=== PATIENT | male | born 1975 | race Caucasian/White ===

== ENCOUNTER 2016-11-15 15:17 | Outpatient (CLI) | payer OTHER ==
[~2016-11-15] VITALS: Ht 157.5 cm; Wt 65.7 kg
[2016-11-15 15:20] VITALS: BP 122/67; PULSE 72; RESP 16; Ht 157.5 cm; Wt 65.7 kg
[2016-11-15] MEDS ORDERED: HYDR-906 PO (15:25)
[2016-11-15] MEDS ORDERED: CIPR500T4 PO (15:25)
[2016-11-15] MEDS ORDERED: METR500T PO (15:25)
[2016-11-15] MEDS ORDERED: POLY17PO6 PO (15:25)
--- NOTE | 2016-11-15 15:50 | PN ---
Date/Time of Note Date/Time of Note DATE: 11/15/16 TIME: 15:44 Outpatient Progress Note Chief Complaint Abdominal pain/ HPI Abdominal pain/patient was recently admitted with abdominal pain, patient had microperforation of the diverticulum, no fever chill, patient still on antibiotic, no nausea vomiting, no diarrhea, no rectal bleeding, no discharge, mostly pain in the left lower quadrant, no radiation, no mucus, no fever chill, no diarrhea, Review of Systems Constitutional: No Fever, no chills, no Wt. loss, no Fatigue, normal appetite, no diaphoresis. Eyes: No pain, no discharge, no redness, no visual change, no foreign body. ENT: No pain, no bleeding, no congestion, no sore throat, no dysphagia, no discharge or rhinitis. Lymph: No adenopathy, no tender nodes, no lymphedema. Resp: No SOB, no cough, no sputum, no wheezing, no chest pain. CV: No chest pain, no palpitaions, no MOSES, no PND, no edema. GI: Normal appetite, left lower quadrant pain, no nausea, no vomiting, no diarrhea, no blood, no constipation. : No frequency, no urgency, no dysuria, no hematuria, no flank pain, no discharge, no bleeding. Musc: No back pain, no neck pain, no knee pain, no restricted ROM. Skin: No rash, no skin lesions, no erythema, no laceration, no bruising, no pruritus. Neuro: No SINGH, no dizziness, no syncope, no seizure, no focal-weakness. Endo: No polyuria, no polydypsia, no dry-skin, no temp-intolerance. Psych: No hallucinations, no depression, no anxiety, no suicidal ideation. Ext: No edema, no pain, no ulcer, no weakness. Physical Exam Vital Signs Date Time Temp Pulse Resp B/P Pulse Ox O2 Delivery O2 Flow Rate FiO2 11/15/16 15:20 98.1 72 16 122/67 97 Room Air General Appearance: A 41 year-old male who appears well-developed, well- nourished, in no acute distress. HEENT: Head normocephalic, atraumatic. Pupils equal, round, reactive to light and accommodate. Sclerae are no jaundice. Nasal turbinates pink without erythema or nasal discharge. Mucous membranes pink and moist without lesions. Oropharynx clear without any exudate or discharge. NECK: Supple. Trachea midline, No thyromegaly, No cervical lymphadenopathy, No mass, No carotid bruits, No JVD, Carotid pulses 2+ bilaterally. PULMONARY: Clear to auscultaion bilaterally, No retractions, Chest expansion symmetric bilaterally, no rales, no ronchi, no dulness on percussion. CARDIAC: Normal SI and S2, Regular rate and rythm, no murmur, gallop, or rub. GASTROINTESTINAL: Abdomen is soft, left lower quadrant mild tenderness, Non Rigid, No distention, Positive bowel sounds x4 quadrants, Liver normal. SKIN: Warm, dry, no rash, no bruise, no echmosis. EXTREMITIES: Bilateral lower extremities normal, no edema, no phlabitus, pulse palpable, no contracture. MUSCULOSKELETAL: Spine Normal, Non-tender, Normal range of motion, No swelling, no deformity, no clubbing, or cyanosis, the patient has no edema to bilateral lower extremities, dorsalis pedis pulses palpable bilaterally. NEUROLOGIC: The patient is awake, alert, oriented, responding to yes/no questions appropriately, moving all extremities, cranial nerve intact, normal strenght, normal power, normal coordination, normal gait. Allergies Coded Allergies: No Known Drug Allergies (Verified Allergy, Unknown, 11/15/16) PMH Abdominal pain/diverticulum perforation Social Hx No smoking, no drinking, Family Hx Noncontributory Assessment/Plan Impression Acute abdominal pain,/micro perforation of diverticulum, Plan Patient education done about a bowel disease, at present patient does not have any fever or chills or abdominal discomfort more than usual, patient already on antibiotic, patient has no complication or side effect, discussed with the patient if has any fever or any other problem to let us know, discussed about abscess and if he does not get better the consequences of perforation, Patient encouraged to follow with the primary care physician, and continue antibiotic, Medications Home Meds Reported Medications Polyethylene Glycol* (Miralax*) 17 Gm Powd.pack, 17 GM PO DAILY for CONSTIPATION , #30 PACKET 11/15/16 Hydrocodone/Acetaminophen ([place] 5-325 Tablet) 1 Each Tablet, 1 EACH PO Q6 for PAIN LEVEL 6-10, TAB 11/15/16 Metronidazole* (Flagyl*) 500 Mg Tablet, 500 MG PO TID, TAB 11/15/16 Ciprofloxacin Hcl* (Ciprofloxacin Hcl*) 500 Mg Tablet, 500 MG PO BID, #14 TAB 11/15/16 MANE BUSTOS MD Nov 15, 2016 15:50
== END 2016-11-15 17:00 | disposition home or self-care (01) ==
LOC: DCC 15:17
PROVIDERS: ATTEND Internal Medicine
DX: R10.9 Unspecified abdominal pain (principal); K57.90 Diverticulosis of intestine, part unspecified, without perforation or abscess without bleeding

== ENCOUNTER 2016-11-29 12:07 | Outpatient (CLI) | payer OTHER ==
[~2016-11-29] VITALS: Ht 157.5 cm; Wt 66.6 kg
[~2016-11-29 12:07] MED LIST: CIPR500T4 PO; HYDR-906 PO; METR500T PO; POLY17PO6 PO
[2016-11-29] MEDS ORDERED: HEPARIN 1000 UNITS/ML 10 ML INJ ONE (12:12)
[2016-11-29 12:13] VITALS: Ht 157.5 cm; Wt 66.6 kg
[2016-11-29 12:14] VITALS: BP 128/78; PULSE 74; RESP 18
--- NOTE | 2016-11-29 12:24 | PN ---
Date/Time of Note Date/Time of Note DATE: 11/29/16 TIME: 12:21 Outpatient Progress Note Chief Complaint Abdominal pain HPI Abdominal pain/patient was recently admitted with acute abdominal pain, patient has microperforation of the diverticulum, patient has no fever chill, no nausea or vomiting, no rectal bleeding or mucus, no abdominal discomfort or distention , patient finished antibiotic, patient feeling comfortable, Review of Systems Const: No Fever, no chills, no Wt. loss, no Fatigue, normal appetite, no diaphoresis. Eyes: No pain, no discharge, no redness, no visual change, no foreign body. ENT: No pain, no bleeding, no congestion, no sore throat, no dysphagia, no discharge or rhinitis. Lymph: No adenopathy, no tender nodes, no lymphedema. Resp: No SOB, no cough, no sputum, no wheezing, no chest pain. CV: No chest pain, no palpitaions, no MOSES, no PND, no edema. GI: Normal appetite, no pain, no nausea, no vomiting, no diarrhea, no blood, no constipation. : No frequency, no urgency, no dysuria, no hematuria, no flank pain, no discharge, no bleeding. Musc: No bone/joint pain, no back pain, no neck pain, no knee pain, no restricted ROM. Skin: No rash, no skin lesions, no erythema, no laceration, no bruising, no pruritus. Neuro: No SINGH, no dizziness, no syncope, no seizure, no focal-weakness. Endo: No polyuria, no polydypsia, no dry-skin, no temp-intolerance. Psych: No hallucinations, no depression, no anxiety, no suicidal ideation. Ext: No edema, no pain, no ulcer, no weakness. Physical Exam Vital Signs Date Time Temp Pulse Resp B/P Pulse Ox O2 Delivery O2 Flow Rate FiO2 11/29/16 12:14 98.2 74 18 128/78 97 Room Air General Appearance: A 41 year-old male who appears well-developed, well- nourished, in no acute distress. HEENT: Head normocephalic, atraumatic. Pupils equal, round, reactive to light and accommodate. Sclerae are no jaundice. Nasal turbinates pink without erythema or nasal discharge. Mucous membranes pink and moist without lesions. Oropharynx clear without any exudate or discharge. NECK: Supple. Trachea midline, No thyromegaly, No cervical lymphadenopathy, No mass, No carotid bruits, No JVD, Carotid pulses 2+ bilaterally. PULMONARY: Clear to auscultaion bilaterally, No retractions, Chest expansion symmetric bilaterally, no rales, no ronchi, no dulness on percussion. CARDIAC: Normal SI and S2, Regular rate and rythm, no murmur, gallop, or rub. GASTROINTESTINAL: Abdomen is soft, non-tender, especially left lower quadrant Non Rigid, No distention, Positive bowel sounds x4 quadrants, Liver normal. SKIN: Warm, dry, no rash, no bruise, no echmosis. EXTREMITIES: Bilateral lower extremities normal, no edema, no phlabitus, pulse palpable, no contracture. MUSCULOSKELETAL: Spine Normal, Non-tender, Normal range of motion, No swelling, no deformity, no clubbing, or cyanosis, the patient has no edema to bilateral lower extremities, dorsalis pedis pulses palpable bilaterally. NEUROLOGIC: The patient is awake, alert, oriented, responding to yes/no questions appropriately, moving all extremities, cranial nerve intact, normal strenght, normal power, normal coordination, normal gait. Allergies Coded Allergies: No Known Drug Allergies (Verified Allergy, Unknown, 11/15/16) PMH Perforation of diverticulum,/diverticulosis Social Hx No change Family Hx No change Assessment/Plan Impression Abdominal pain resolved/diverticulosis/perforation of diverticulum controlled with antibiotic Plan Patient education done, if patient has any abdominal pain to go to ER, any high temperature go to the ER, Patient was also told that if she has any other symptoms to contact the primary care physician, at present patient feeling comfortable, has no subjective complaint, so will monitor closely, will make an appointment from here for primary care physician, Medications Home Meds Reported Medications Polyethylene Glycol* (Miralax*) 17 Gm Powd.pack, 17 GM PO DAILY for CONSTIPATION , #30 PACKET 11/15/16 Discontinued Reported Medications Hydrocodone/Acetaminophen ([place] 5-325 Tablet) 1 Each Tablet, 1 EACH PO Q6 for PAIN LEVEL 6-10, TAB 11/15/16 Metronidazole* (Flagyl*) 500 Mg Tablet, 500 MG PO TID, TAB 11/15/16 Ciprofloxacin Hcl* (Ciprofloxacin Hcl*) 500 Mg Tablet, 500 MG PO BID, #14 TAB 11/15/16 MANE BUSTOS MD Nov 29, 2016 12:24
== END 2016-11-29 16:28 | disposition home or self-care (01) ==
LOC: DCC 12:07
PROVIDERS: ATTEND Internal Medicine
DX: R10.9 Unspecified abdominal pain (principal); K57.90 Diverticulosis of intestine, part unspecified, without perforation or abscess without bleeding
CPT/HCPCS: G0463; J1644